=== PATIENT | male | born 1995 | race Caucasian/White ===

== ENCOUNTER 2017-01-19 20:42 | Emergency (ER) | payer OTHER ==
[~2017-01-19] VITALS: Ht 172.7 cm; Wt 83.0 kg
[2017-01-19 21:04] VITALS: PULSE 51; RESP 20; TEMP 98.2; O2SAT 98
[2017-01-19 21:08] VITALS: PULSE 52; RESP 20; TEMP 98.2; O2SAT 98
[2017-01-19] MEDS ORDERED: TIMOLOL LEFT EYE (21:10)
[2017-01-19] MEDS ORDERED: DIPHENOXYLATE/ATROPINE 2.5 MG/0.025 MG TAB PO ONE (21:30)
[2017-01-19] MEDS ORDERED: SODIUM CHLORID 0.9% 500 ML INJ 500 ML IV ONE (21:30)
[2017-01-19] MEDS ORDERED: ONDANSETRON HCL 4 MG/2 ML VIAL IV PUSH ONE (21:30)
--- NOTE | 2017-01-19 21:30 | PD ---
HPI Chief Complaint: GI Complaint Time Seen by Provider: 21:14 Travel History International Travel<30 days: No Contact w/Intl Traveler<30days: No Traveled to known affect area: No History of Present Illness HPI 21-year-old male with abdominal cramps, nausea vomiting diarrhea. Patient states that he had a small area of itching rash on the right shoulder this morning. Patient states that the rash lasted about 10 minutes and resolved completely. Patient started having abdominal cramping with nausea vomiting diarrhea this evening. Patient denies any fever chills. Patient denies any headache. Patient denies any chest pain or shortness of breath. Patient states that he has mild, cramping with vomiting. Patient denies any back pain. Patient denies any dysuria or frequency. Patient denies any fever chills. EMS was called. Patient was given Benadryl 50 mg IV by EMS for possible allergic reaction prior to arrival. PFSH Past Medical History Glaucoma: Yes (on eye gtts, (L) eye ) Past Surgical History Surgical History: No Previous Surgery Social History Alcohol Use: No Tobacco Use: No Substance Use: No Allergies-Medications (Allergen,Severity, Reaction): Coded Allergies: No Known Allergies (Unverified , 01/19/17) Reported Meds & Prescriptions Reported Meds & Active Scripts Active Reported [temolol] LEFT EYE 1 Days Review of Systems General / Constitutional: No: Fever Eyes: No: Visual changes HENT: No: Headaches Cardiovascular: No: Chest Pain or Discomfort Respiratory: No: Shortness of Breath Gastrointestinal: Positive: Nausea, Vomiting, Diarrhea, Abdominal Pain Genitourinary: No: Dysuria Musculoskeletal: No: Pain Skin: No Rash Neurologic: No: Weakness Psychiatric: No: Depression Endocrine: No: Polydipsia Hematologic/Lymphatic: No: Easy Bruising Physical Exam Narrative GENERAL: Well-nourished, well-developed patient. SKIN: Focused skin assessment warm/dry. No evidence of rash on the face, trunk , extremity. HEAD: Normocephalic. EYES: No scleral icterus. No injection or drainage. NECK: Supple, trachea midline. No JVD or lymphadenopathy. CARDIOVASCULAR: Regular rate and rhythm without murmurs, gallops, or rubs. RESPIRATORY: Breath sounds equal bilaterally. No accessory muscle use. GASTROINTESTINAL: Abdomen soft, non-tender, nondistended. MUSCULOSKELETAL: No cyanosis, or edema. BACK: Nontender without obvious deformity. No CVA tenderness. Neurologic exam normal. Data Data Last Documented VS Vital Signs Date Time Temp Pulse Resp B/P Pulse Ox O2 Delivery O2 Flow Rate FiO2 01/19/17 21:08 98.2 52 20 98 Room Air Orders Sodium Chlorid 0.9% 500 Ml Inj (Ns 500 M (01/19/17 21:30) Ondansetron Inj (Zofran Inj) (01/19/17 21:30) Diphenoxylate/Atropine Tab (Lomotil Tab) (01/19/17 21:30) [facility] Medical Decision Making Medical Screen Exam Complete: Yes Emergency Medical Condition: Yes Differential Diagnosis Differential diagnosis including gastroenteritis, gastritis, PUD, pancreatitis, cholecystitis, colitis, UTI, pyelonephritis. Narrative Course 21-year-old male with abdominal cramping, nausea vomiting diarrhea. Normal saline solution 500 cc IV bolus. Zofran 4 mg IV. Lomotil one tablet by mouth given. Examination consistent with gastroenteritis. Patient does not have any abdominal pain. No evidence of rash noted on the face trunk or extremity. 23: 41 PM. Patient feeling better. Patient wants to go home. Diagnosis Primary Impression: Gastroenteritis Patient Instructions: General Instructions Additional Instructions: Clear fluids tomorrow morning and advance diet as tolerated. Take medications as needed. Follow-up with personal physician. Return if persistent problem or worse. Med/Other Pt SpecificInfo: Prescription(s) given Scripts Diphenoxylate-Atropine (Lomotil)2.5-0.025 Mg Tab1 Tab PO Q6H PRN (DIARRHEA) #10 TAB Ref 0 Prov:Charles Shrestha MD 01/19/17 Ondansetron Odt (Zofran Odt)4 Mg Tab4 Mg SL Q6HR PRN (Nausea/Vomiting) #10 TAB Prov:Charles Shrestha MD 01/19/17 Disposition: 01 DISCHARGE HOME Condition: Stable Charles Shrestha MD Jan 19, 2017 21:30
[2017-01-19] MEDS ORDERED: ZOFR4TAB3 SL (23:42)
[2017-01-19] MEDS ORDERED: LOMO2.5T PO (23:42)
[2017-01-20] MEDS ORDERED: TIMO5SOL LEFT EYE (22:01)
== END 2017-01-19 23:54 | disposition home or self-care (01) ==
LOC: NEPD 20:42
DX: K52.9 Noninfective gastroenteritis and colitis, unspecified (principal)
CPT/HCPCS: 96374; 99284; J2405; J7040